=== PATIENT | female | born 1980 | race Caucasian/White ===

== ENCOUNTER 2023-03-01 08:12 | Emergency (ER) | payer OTHER ==
[~2023-03-01] VITALS: Ht 170.2 cm; Wt 90.7 kg
[2023-03-01] MEDS ORDERED: MAXITROL EYE DRO5 ML OP (08:54)
== END 2023-03-01 09:09 | disposition home or self-care (01) ==
LOC: ER 08:13
DX: H10.89 Other conjunctivitis (principal)

== ENCOUNTER → 2024-04-08 | Outpatient (CLI) | payer OTHER ==
[~2024-04-08] MED LIST: MAXITROL EYE DRO5 ML OP
== END | disposition home or self-care (01) ==
LOC: MAMO-SONO 11:35
PROVIDERS: ATTEND Surgery
DX: N60.11 Diffuse cystic mastopathy of right breast (principal); N60.12 Diffuse cystic mastopathy of left breast